=== PATIENT | male | born 1975 | race Caucasian/White ===

== ENCOUNTER 2017-10-21 19:51 | Inpatient (IN) | payer OTHER ==
[2017-10-21] MEDS ORDERED: Sodium Chloride 0.9% 1,000 ML IV STA ×2 (20:24→22:20)
[2017-10-21] MEDS ORDERED: Famotidine 20mg/50ml Premix IVPB STA (20:24)
[2017-10-21] MEDS ORDERED: Famotidine 20mg/50ml 20 MG/50 ML BAG IVPB ONE (20:35)
--- NOTE | 2017-10-21 20:37 | ED PDOC ---
HPI: Abdomen Chief Complaint (Nursing): Abdominal Pain History Per: Patient History/Exam Limitations: no limitations Additional Complaint(s): 42 yo M with no PMH presents c/o constant waxing and waning epigastric pain which radiates to the rest of the abdomen, associated with nausea, vomiting, reports his symptoms started 2-3 hours after eating left over food, he had 2 BMs without improvement of his symptoms. Reports no fever, chills, urinary symptoms, diarrhea, CP, SOB, back pain, GB disease, h/o kidney stones, similar symptoms in the past, abdominal surgeries, melena, hematochezia. PMD none Past Medical History Vital Signs: Last Vital Signs Temp 98.7 F 10/22/17 02:05 Pulse 64 10/22/17 02:05 Resp 18 10/22/17 02:17 BP 113/65 10/22/17 02:05 Pulse Ox 100 10/22/17 02:46 - Medical History PMH: No Chronic Diseases - Family History Family History: States: No Known Family Hx - Social History Current smoker - smoking cessation education provided: Yes (on occasions when he drinks alcohol) Alcohol: Social - Home Medications Home Medications: Ambulatory Orders Medication Instructions Recorded No Known Home Med 10/22/17 - Allergies Allergies/Adverse Reactions: Allergies Allergy/AdvReac Type Severity Reaction Status Date / Time No Known Allergies Allergy Verified 10/21/17 19:58 Review of Systems Constitutional: Negative for: Fever, Malaise Cardiovascular: Negative for: Chest Pain, Palpitations Respiratory: Negative for: Cough, Shortness of Breath Gastrointestinal: Positive for: Nausea, Vomiting, Abdominal Pain. Negative for : Diarrhea Genitourinary Male: Negative for: Dysuria, Frequency Musculoskeletal: Negative for: Back Pain Skin: Negative for: Rash, Lesions Neurological: Negative for: Weakness, Numbness Physical Exam - Physical Exam Appears: Positive for: Well, Non-toxic, In Acute Distress (moderate painful distress, unable to lay comfortably in the bed) Head Exam: Positive for: ATRAUMATIC, NORMAL INSPECTION, NORMOCEPHALIC Skin: Positive for: Normal Color, Warm, DRY Eye Exam: Positive for: EOMI, Normal appearance, PERRL ENT: Positive for: Normal ENT Inspection, Other (mucus membranes moist) Neck: Positive for: Normal, Painless ROM Cardiovascular/Chest: Positive for: Regular Rate, Rhythm. Negative for: Murmur Respiratory: Positive for: Normal Breath Sounds. Negative for: Rales, Rhonchi, Wheezing Gastrointestinal/Abdominal: Positive for: Normal Exam, Soft, Tenderness ( moderate diffuse abdominal tenderness, greatest in the LUQ). Negative for: Organomegaly, Mass, Distended, Guarding, Rebound Back: Positive for: Normal Inspection. Negative for: L CVA Tenderness, R CVA Tenderness, Vertebral Tenderness Extremity: Positive for: Normal ROM, Capillary Refill (<2sec). Negative for: Tenderness, Deformity, Swelling Neurologic/Psych: Positive for: Alert, software engineer intern II-XII, Oriented (x3). Negative for : Motor/Sensory Deficits - Laboratory Results Result Diagrams: 10/21/17 20:45 10/21/17 20:45 - ECG O2 Sat by Pulse Oximetry: 100 Medical Decision Making Medical Decision Making: Impression : consider gastroenteritis, dyspepsia, biliary colic Plan : - Labs - IV - UA - US abd / renal - Toradol IV / pepcid IV / zofran IV Labs reviewed : wbc 15, cmp/LFTs wnl. Time: 1 US ABD RESULTS FINDINGS: Liver: Unremarkable liver span 14.5 cm No mass. No intrahepatic bile duct dilation. Gallbladder: Abnormal wall thickening 6 mm No gallstones. Common bile duct: Unremarkable as visualized. No stones. 3.9 mm Pancreas: Unremarkable as visualized. Kidneys: Unremarkable. No stones. No solid mass. No hydronephrosis. RIGHT kidney 10.4 cm x 4.7 cm x 5.4 cm. LEFT kidney 9.8 cm x 5.7 cm x 5 cm Spleen: Unremarkable. No splenomegaly. 8.2 cm IMPRESSION: 1. Hepatic steatosis 2. Abnormal gallbladder wall thickening no gallstones 3. Otherwise Normal abdominal ultrasound. Dictated and Authenticated by: Edwin Archer MD 10/22/2017 12:02 AM Eastern Time ([place] & [place]) On re-evaluation, patient reports improvement of symptoms, continues to c/o mild pain to the epigastric area. On exam, patient remains AAOx3, in no acute distress. Abdomen soft, mild tenderness to the epigastric area, repeat neuro exam shows no focal findings. Lab results reviewed d/w the patient. Diagnostic results d/w the patient in great detail. Diagnosis of possible acalculous cholecystitis d/w the patient. Zosyn IV ordered. Based on history, exam and diagnostic results, plan will be for inpatient observation. Case d/w cardiovascular surgical tech Dr. Clinton, agrees with plan. Patient states he fully agrees with further plan and disposition. I have given the patient opportunity to ask any additional questions. Consult for surgery ordered. Case d/w medicine relationship management lead physician, Dr. Mcdowell, agrees with plan. Scribe Attestation: Documented by Yadiel Bustamante, acting as a scribe for Caroline Parks PA-C. Provider Scribe Attestation: All medical record entries made by the Scribe were at my direction and personally dictated by me. I have reviewed the chart and agree that the record accurately reflects my personal performance of the medical decision making for this patient. I have also personally directed, reviewed, and agree with the discharge instructions and disposition. Disposition - Clinical Impression Clinical Impression: Abdominal pain, Cholecystitis - Patient ED Disposition Is Patient to be Admitted: Yes Counseled Patient/Family Regarding: Studies Performed, Diagnosis - Disposition Disposition Time: 00:00 Condition: STABLE
[2017-10-21 21:00] LABS: MEAN PLATELET VOLUME 7.8 fl (7.2-11.7); MONO # 0.5 K/uL (0.0-0.8); SQUAMOUS EPITHIAL < 1 /hpf (0-5); URINE BILIRUBIN NEGATIVE (NEGATIVE); URINE BLOOD SMALL (NEGATIVE); URINE CLARITY CLEAR (Clear); URINE COLOR YELLOW (YELLOW); URINE GLUCOSE (UA) NEG (Normal); URINE LEUKOCYTE ESTERASE NEG Leu/uL (Negative); URINE PROTEIN NEGATIVE (NEGATIVE); URINE UROBILINOGEN 0.2-1.0 mg/dL (0.2-1.0)
[2017-10-21 21:06] LABS: ALB/GLOB RATIO 1.4 (1.0-2.1); ALBUMIN 4.6 g/dL (3.5-5.0); ALT/SGPT 50 U/L (21-72); AST/SGOT 36 U/L (17-59); BLOOD UREA NITROGEN 9 mg/dl (9-20); CALCIUM 9.3 mg/dL (8.4-10.2); GFR AFRICAN-AMERICAN > 60; GFR NON-AFRICAN AMERICAN > 60; LIPASE 65 U/L (23-300)
[2017-10-21 21:10] LABS: BASO % 0.1 % (0.0-2.0); EOS % 0.1 % (0.0-4.0); HEMOGLOBIN 14.3 g/dL (12.0-18.0); LYMPH # 0.8 K/uL (1.0-4.3); LYMPH % 5.4 % (20.0-40.0); MEAN CELL VOLUME 88.7 fl (80.0-94.0); MEAN CORPUSCULAR HEMOGLOBIN 30.7 pg (27.0-31.0); MEAN CORPUSCULAR HGB CONC 34.6 g/dL (33.0-37.0); MONO % 3.6 % (0.0-10.0); NEUT # 13.7 K/uL (1.8-7.0); NEUT % 90.8 % (50.0-75.0); NRBC % 0.1 % (0.0-0.0); PLATELET COUNT 219 K/uL (130-400); RBC 4.65 Mil/uL (4.40-5.90); RED CELL DISTRIBUTION WIDTH 12.6 % (11.5-14.5); WHITE BLOOD COUNT 15.1 K/uL (4.8-10.8)
[2017-10-21 21:47] LABS: BANDS 1 % (0-2); LYMPHOCYTE 6 % (20-50); MONOCYTE 2 % (0-10); NEUTROPHIL 91 % (42-75); PLATELET ESTIMATE NORMAL (NORMAL); TOTAL CELLS COUNTED 100
[2017-10-21] MEDS ORDERED: Atrop/Hyos/Scop/PhenoB Elixir PO ONE (23:49)
[2017-10-21] MEDS ORDERED: Alum-Mag Hydrox-Simethicone Susp (30 mL) PO STA (23:49)
[2017-10-21] MEDS ORDERED: Alum-Mag Hydrox-Simethicone Susp (30 mL) ONE (23:54)
[2017-10-22] MEDS ORDERED: Piperacillin/Tazobact 3.375 GM in Sodium Chloride 0.9% 100 ML IVPB STA (00:30)
[2017-10-22] MEDS ORDERED: Piperacillin/Tazobact 3.375 gm Inj IVPB ONE (00:50)
--- NOTE | 2017-10-22 00:54 | CP.PCM.CON ---
<Song Jacob - Last Filed: 10/22/17 06:43> History of Present Illness - History of Present Illness History of Present Illness: Surgery Consult note. Dr. Coleman 42yo M with no significant PMHx here for evaluation of abdominal pain. Patient states that the abdominal pain started at about 6PM last night, located in the epigastric region and radiates throughout the entire abdomen, described as sharp , crampy, constant and severe. No remitting or exacerbating factors. Last food intake was at 2PM, left-over food. Does report nausea and vomiting x2 episodes, non-bilious, non bloody. Reports multiple bowel movements (3-4) today , harder consistency compared to normal, denies any blood or melena. Does report some chills, no fevers. Has never had similar symptoms in the past. No CP /SOB. No urinary complaints. No headaches. No other sick contacts. PMHx: Denies PSHx: Inguinal hernia repair (unknown laterality). Social Hx: Occasional Tobacco use (1cig per week), Social ETOH use (3 times per week), Denies illicit drugs Family Hx: denies NKDA Review of Systems - Review of Systems All systems: reviewed and no additional remarkable complaints except - Constitutional Constitutional: Chills. absent: Fever - Cardiovascular Cardiovascular: absent: Chest Pain, Dyspnea - Respiratory Respiratory: absent: Cough, Dyspnea - Gastrointestinal Gastrointestinal: Abdominal Pain, Constipation, Nausea, Vomiting. absent: Coffee Ground Emesis, Hematochezia, Loose Stools, Melena - Genitourinary Genitourinary: absent: Difficulty Urinating, Dysuria - Musculoskeletal Musculoskeletal: absent: Back Pain Past Patient History - Past Medical History & Family History Past Medical History?: No Past Family History: Reviewed and not pertinent - Past Social History Smoking Status: Current Some Days Smoker Alcohol: Social Drugs: Denies - PSYCHIATRIC Hx Substance Use: No - SURGICAL HISTORY Hx Surgeries: No Meds Allergies/Adverse Reactions: Allergies Allergy/AdvReac Type Severity Reaction Status Date / Time No Known Allergies Allergy Verified 10/21/17 19:58 - Medications Medications: Current Medications Sodium Chloride (Sodium Chloride 0.9%) 1,000 mls @ 200 mls/hr IV .Q5H STA Stop: 10/22/17 03:19 Last Admin: 10/21/17 22:56 Dose: 200 mls/hr Piperacillin Sod/Tazobactam (Sod 3.375 gm/ Sodium Chloride) 100 mls @ 100 mls/ hr IVPB STAT STA PRN Reason: Protocol Stop: 10/22/17 01:29 Physical Exam - Constitutional Appears: Well, Non-toxic, No Acute Distress - Head Exam Head Exam: ATRAUMATIC, NORMAL INSPECTION, NORMOCEPHALIC - Eye Exam Eye Exam: EOMI, Normal appearance. absent: Scleral icterus - ENT Exam ENT Exam: Mucous Membranes Moist - Respiratory Exam Respiratory Exam: NORMAL BREATHING PATTERN. absent: Accessory Muscle Use, Respiratory Distress - Cardiovascular Exam Cardiovascular Exam: RRR. absent: JVD - GI/Abdominal Exam GI & Abdominal Exam: Soft. absent: Distended, Firm, Guarding, Hernia, Rigid Additional comments: Mild epigastric tenderness. Soft, non-distended. No rebound, no guarding. No rebound tenderness. Negative Mathew's sign - Extremities Exam Extremities exam: Positive for: normal inspection. Negative for: calf tenderness - Back Exam Back exam: NORMAL INSPECTION. absent: CVA tenderness (L), CVA tenderness (R) - Neurological Exam Neurological exam: Alert, Oriented x3 - Psychiatric Exam Psychiatric exam: Normal Affect, Normal Mood - Skin Skin Exam: Dry, Intact, Normal Color, Warm Results - Vital Signs Recent Vital Signs: Last Vital Signs Temp 98.4 F 10/21/17 19:58 Pulse 77 10/21/17 19:58 Resp 20 10/21/17 19:58 BP 148/95 H 10/21/17 19:58 Pulse Ox 100 10/22/17 00:18 - Labs Result Diagrams: 10/21/17 20:45 10/21/17 20:45 Labs: Laboratory Results - last 24 hr 10/21/17 10/21/17 10/21/17 20:45 20:45 20:45 WBC 15.1 H RBC 4.65 Hgb 14.3 Hct 41.2 MCV 88.7 MCH 30.7 MCHC 34.6 RDW 12.6 Plt Count 219 MPV 7.8 Neut % (Auto) 90.8 H Lymph % (Auto) 5.4 L [place] % (Auto) 3.6 Eos % (Auto) 0.1 Baso % (Auto) 0.1 Neut # (Auto) 13.7 H Lymph # (Auto) 0.8 L [place] # (Auto) 0.5 Eos # (Auto) 0.0 Baso # (Auto) 0.0 Neutrophils % (Manual) 91 H Band Neutrophils % 1 Lymphocytes % (Manual) 6 L Monocytes % (Manual) 2 Platelet Estimate Normal Sodium 137 Potassium 3.6 Chloride 98 Carbon Dioxide 27 Anion Gap 16 BUN 9 Creatinine 0.7 L Est GFR ( Amer) > 60 Est GFR (Non-Af Amer) > 60 Random Glucose 110 Calcium 9.3 Total Bilirubin 1.0 AST 36 ALT 50 Alkaline Phosphatase 63 Total Protein 7.8 Albumin 4.6 Globulin 3.3 Albumin/Globulin Ratio 1.4 Lipase 65 Urine Color Yellow Urine Clarity Clear Urine pH 6.0 Ur Specific [place] 1.015 Urine Protein Negative Urine Glucose (UA) Neg Urine Ketones Trace Urine Blood Small Urine Nitrate Negative Urine Bilirubin Negative Urine Urobilinogen 0.2-1.0 Ur Leukocyte Esterase Neg Urine RBC (Auto) 8 H Urine Microscopic WBC < 1 Ur Squamous Epith Cells < 1 Assessment & Plan - Assessment and Plan (Free Text) Assessment: 42yo M with Abdominal pain - Abd US noted: No gallstones; GB wall thickening 6mm. No CBD stones. CBD 3.9mm - Leukocytosis. Afebrile. VSS Plan: - Admit to medicine - NPO for now - IVF - IV Abx - antiemetics prn - pain management - f/u AM labs - F/u HIDA - We will follow patient's clinical status and make recommendations as warranted Further recs as per Dr. Jared Jacob PGY1 surgery pager: [phone] <Jd Coleman - Last Filed: 10/22/17 18:17> History of Present Illness - History of Present Illness History of Present Illness: Patient was seen and examined at the bedside. Agree with resident's note above. Meds - Medications Medications: Current Medications Acetaminophen (Tylenol 325mg Tab) 650 mg PO Q4 PRN PRN Reason: Fever >100.4 F Last Admin: 10/22/17 09:31 Dose: 650 mg Docusate Sodium (Colace) 100 mg PO BID SOFI Last Admin: 10/22/17 17:06 Dose: 100 mg Hydromorphone HCl (Dilaudid) 0.5 mg IVP Q4H PRN PRN Reason: Pain, moderate (4-7) Piperacillin Sod/Tazobactam (Sod 3.375 gm/ Sodium Chloride) 100 mls @ 100 mls/ hr IVPB 0000,0600,1200,1800 [facility] PRN Reason: Protocol Last Admin: 10/22/17 17:05 Dose: 100 mls/hr Dextrose/Sodium Chloride (Dextrose 5%/0.45% Ns 1000 Ml) 1,000 mls @ 125 mls/hr IV .Q8H [facility] Stop: 10/23/17 09:34 Last Admin: 10/22/17 17:23 Dose: 125 mls/hr Ondansetron HCl (Zofran Inj) 4 mg IVP Q6 PRN PRN Reason: Nausea/Vomiting Pantoprazole Sodium (Protonix Inj) 40 mg IVP DAILY [facility] Last Admin: 10/22/17 10:08 Dose: 40 mg Physical Exam - GI/Abdominal Exam Additional comments: soft, tender in the RLQ, ND, BS+, no rebound, no guarding Results - Vital Signs Recent Vital Signs: Last Vital Signs Temp 98.3 F 10/22/17 16:31 Pulse 101 H 10/22/17 16:31 Resp 20 10/22/17 16:31 BP 108/70 10/22/17 16:31 Pulse Ox 100 10/22/17 16:31 - Labs Result Diagrams: 10/22/17 05:30 10/22/17 05:30 Labs: Laboratory Results - last 24 hr 10/21/17 10/21/17 10/21/17 20:45 20:45 20:45 WBC 15.1 H RBC 4.65 Hgb 14.3 Hct 41.2 MCV 88.7 MCH 30.7 MCHC 34.6 RDW 12.6 Plt Count 219 MPV 7.8 Neut % (Auto) 90.8 H Lymph % (Auto) 5.4 L [place] % (Auto) 3.6 Eos % (Auto) 0.1 Baso % (Auto) 0.1 Neut # (Auto) 13.7 H Lymph # (Auto) 0.8 L [place] # (Auto) 0.5 Eos # (Auto) 0.0 Baso # (Auto) 0.0 Neutrophils % (Manual) 91 H Band Neutrophils % 1 Lymphocytes % (Manual) 6 L Monocytes % (Manual) 2 Platelet Estimate Normal Sodium 137 Potassium 3.6 Chloride 98 Carbon Dioxide 27 Anion Gap 16 BUN 9 Creatinine 0.7 L Est GFR ( Amer) > 60 Est GFR (Non-Af Amer) > 60 Random Glucose 110 Calcium 9.3 Total Bilirubin 1.0 AST 36 ALT 50 Alkaline Phosphatase 63 Total Protein 7.8 Albumin 4.6 Globulin 3.3 Albumin/Globulin Ratio 1.4 Lipase 65 Urine Color Yellow Urine Clarity Clear Urine pH 6.0 Ur Specific [place] 1.015 Urine Protein Negative Urine Glucose (UA) Neg Urine Ketones Trace Urine Blood Small Urine Nitrate Negative Urine Bilirubin Negative Urine Urobilinogen 0.2-1.0 Ur Leukocyte Esterase Neg Urine RBC (Auto) 8 H Urine Microscopic WBC < 1 Ur Squamous Epith Cells < 1 10/22/17 10/22/17 05:30 05:30 WBC 13.2 H RBC 4.51 Hgb 13.9 Hct 39.9 MCV 88.4 MCH 30.9 MCHC 35.0 RDW 13.0 Plt Count 197 MPV 8.0 Neut % (Auto) 81.0 H Lymph % (Auto) 11.2 L [place] % (Auto) 7.3 Eos % (Auto) 0.3 Baso % (Auto) 0.2 Neut # (Auto) 10.7 H Lymph # (Auto) 1.5 [place] # (Auto) 1.0 H Eos # (Auto) 0.0 Baso # (Auto) 0.0 Neutrophils % (Manual) Band Neutrophils % Lymphocytes % (Manual) Monocytes % (Manual) Platelet Estimate Sodium 140 Potassium 3.6 Chloride 104 Carbon Dioxide 28 Anion Gap 12 BUN 4 L Creatinine 0.8 Est GFR ( Amer) > 60 Est GFR (Non-Af Amer) > 60 Random Glucose 98 Calcium 8.4 Total Bilirubin 1.5 H AST 27 ALT 34 Alkaline Phosphatase 49 Total Protein 6.6 Albumin 3.8 Globulin 2.9 Albumin/Globulin Ratio 1.3 Lipase Urine Color Urine Clarity Urine pH Ur Specific [place] Urine Protein Urine Glucose (UA) Urine Ketones Urine Blood Urine Nitrate Urine Bilirubin Urine Urobilinogen Ur Leukocyte Esterase Urine RBC (Auto) Urine Microscopic WBC Ur Squamous Epith Cells - Imaging and Cardiology US - abdomen Status: Image reviewed by me, Report reviewed by me Assessment & Plan - Assessment and Plan (Free Text) Plan: - Keep NPO - IV fluids - Continue Zosyn - CT scan abd/pelvis with po and IV contrast - Pain control - Repeat labs in am - Will follow
[2017-10-22] MEDS ORDERED: HYDROmorphone 0.5 mg/0.5 ml ISec IVP PRN (00:56)
[2017-10-22] MEDS ORDERED: Sodium Chloride 0.9% 1,000 ML IV SCH (01:00)
[2017-10-22] MEDS: Piperacillin/Tazobact 3.375 GM in Sodium Chloride 0.9% 100 ML IVPB SCH ×4 (05:41→23:27)
[2017-10-22 07:27] LABS: BASO % 0.2 % (0.0-2.0); EOS % 0.3 % (0.0-4.0); HEMOGLOBIN 13.9 g/dL (12.0-18.0); LYMPH # 1.5 K/uL (1.0-4.3); LYMPH % 11.2 % (20.0-40.0); MEAN CELL VOLUME 88.4 fl (80.0-94.0); MEAN CORPUSCULAR HEMOGLOBIN 30.9 pg (27.0-31.0); MONO % 7.3 % (0.0-10.0); NEUT # 10.7 K/uL (1.8-7.0); RBC 4.51 Mil/uL (4.40-5.90); WHITE BLOOD COUNT 13.2 K/uL (4.8-10.8)
[2017-10-22 07:29] LABS: ALB/GLOB RATIO 1.3 (1.0-2.1); ALBUMIN 3.8 g/dL (3.5-5.0); ALT/SGPT 34 U/L (21-72); AST/SGOT 27 U/L (17-59); BLOOD UREA NITROGEN 4 mg/dl (9-20); CALCIUM 8.4 mg/dL (8.4-10.2); GFR AFRICAN-AMERICAN > 60; GFR NON-AFRICAN AMERICAN > 60
--- NOTE | 2017-10-22 09:59 | RAD ---
PROCEDURE: CHEST RADIOGRAPH, 1 VIEW HISTORY: fever COMPARISON: None available. FINDINGS: LUNGS: Clear. PLEURA: No pneumothorax or pleural fluid seen. CARDIOVASCULAR: Normal. OSSEOUS STRUCTURES: No significant abnormalities. VISUALIZED UPPER ABDOMEN: Normal. OTHER FINDINGS: None. IMPRESSION: No acute cardiopulmonary disease appreciated.
[2017-10-22] MEDS: Dextrose 5%/0.45% NS 1,000 ML IV SCH ×2 (10:04→17:23)
--- NOTE | 2017-10-22 12:47 | CP.PCM.CON ---
History of Present Illness - History of Present Illness History of Present Illness: 42 yo male admitted with abdominal pain. . Started Monday afternoon after eating leftovers from the day before. Food was vegetarian [place] food.Also had multiple BMs which varied from soft to hard. No prior GI issues. This morning had temp spike to 103. Review of Systems - Constitutional Constitutional: Chills - EENT Eyes: absent: Blurred Vision Ears: absent: Decreased Hearing Nose/Mouth/Throat: absent: Nasal Congestion - Cardiovascular Cardiovascular: absent: Chest Pain - Respiratory Respiratory: absent: Dyspnea - Gastrointestinal Gastrointestinal: Abdominal Pain - Genitourinary Genitourinary: absent: Change in Urinary Stream Past Patient History - Past Medical History & Family History Past Medical History?: No Past Family History: Reviewed and not pertinent - Past Social History Smoking Status: Current Some Days Smoker Alcohol: Social Drugs: Denies - CARDIAC Hx Cardiac Disorders: No - PULMONARY Hx Respiratory Disorders: No - NEUROLOGICAL Hx Neurological Disorder: No - HEENT Hx HEENT Problems: No - RENAL Hx Chronic Kidney Disease: No - ENDOCRINE/METABOLIC Hx Endocrine Disorders: No - HEMATOLOGICAL/ONCOLOGICAL Hx Blood Disorders: No Hx AIDS: No Hx Human Immunodeficiency Virus (HIV): No - INTEGUMENTARY Hx Dermatological Problems: No - MUSCULOSKELETAL/RHEUMATOLOGICAL Hx Musculoskeletal Disorders: No Hx Falls: No - GASTROINTESTINAL Hx Gastrointestinal Disorders: No - GENITOURINARY/GYNECOLOGICAL Hx Genitourinary Disorders: No - PSYCHIATRIC Hx Substance Use: No - SURGICAL HISTORY Hx Surgeries: No - ANESTHESIA Hx Anesthesia: No Hx Anesthesia Reactions: No Hx Malignant Hyperthermia: No Has any member of the family had a problem w/ anesthesia?: No Meds Allergies/Adverse Reactions: Allergies Allergy/AdvReac Type Severity Reaction Status Date / Time No Known Allergies Allergy Verified 10/21/17 19:58 - Medications Medications: Current Medications Acetaminophen (Tylenol 325mg Tab) 650 mg PO Q4 PRN PRN Reason: Fever >100.4 F Last Admin: 10/22/17 09:31 Dose: 650 mg Docusate Sodium (Colace) 100 mg PO BID SOFI Hydromorphone HCl (Dilaudid) 0.5 mg IVP Q4H PRN PRN Reason: Pain, moderate (4-7) Piperacillin Sod/Tazobactam (Sod 3.375 gm/ Sodium Chloride) 100 mls @ 100 mls/ hr IVPB 0000,0600,1200,1800 [facility] PRN Reason: Protocol Last Admin: 10/22/17 11:02 Dose: 100 mls/hr Dextrose/Sodium Chloride (Dextrose 5%/0.45% Ns 1000 Ml) 1,000 mls @ 125 mls/hr IV .Q8H [facility] Stop: 10/23/17 09:34 Last Admin: 10/22/17 10:04 Dose: 125 mls/hr Ondansetron HCl (Zofran Inj) 4 mg IVP Q6 PRN PRN Reason: Nausea/Vomiting Pantoprazole Sodium (Protonix Inj) 40 mg IVP DAILY [facility] Last Admin: 10/22/17 10:08 Dose: 40 mg Physical Exam - Constitutional Appears: No Acute Distress - Head Exam Head Exam: ATRAUMATIC - Eye Exam Eye Exam: Normal appearance - ENT Exam ENT Exam: Normal Exam - Respiratory Exam Respiratory Exam: NORMAL BREATHING PATTERN - Cardiovascular Exam Cardiovascular Exam: REGULAR RHYTHM, +S1, +S2 - GI/Abdominal Exam GI & Abdominal Exam: Normal Bowel Sounds, Soft, Tenderness Additional comments: Moderate LUQ and RLQ tenderness Results - Vital Signs Recent Vital Signs: Last Vital Signs Temp 99.1 F 10/22/17 11:00 Pulse 62 10/22/17 08:05 Resp 18 10/22/17 08:05 BP 132/85 10/22/17 08:05 Pulse Ox 100 10/22/17 08:05 - Labs Result Diagrams: 10/22/17 05:30 10/22/17 05:30 Labs: Laboratory Results - last 24 hr 10/21/17 10/21/17 10/21/17 20:45 20:45 20:45 WBC 15.1 H RBC 4.65 Hgb 14.3 Hct 41.2 MCV 88.7 MCH 30.7 MCHC 34.6 RDW 12.6 Plt Count 219 MPV 7.8 Neut % (Auto) 90.8 H Lymph % (Auto) 5.4 L [place] % (Auto) 3.6 Eos % (Auto) 0.1 Baso % (Auto) 0.1 Neut # (Auto) 13.7 H Lymph # (Auto) 0.8 L [place] # (Auto) 0.5 Eos # (Auto) 0.0 Baso # (Auto) 0.0 Neutrophils % (Manual) 91 H Band Neutrophils % 1 Lymphocytes % (Manual) 6 L Monocytes % (Manual) 2 Platelet Estimate Normal Sodium 137 Potassium 3.6 Chloride 98 Carbon Dioxide 27 Anion Gap 16 BUN 9 Creatinine 0.7 L Est GFR ( Amer) > 60 Est GFR (Non-Af Amer) > 60 Random Glucose 110 Calcium 9.3 Total Bilirubin 1.0 AST 36 ALT 50 Alkaline Phosphatase 63 Total Protein 7.8 Albumin 4.6 Globulin 3.3 Albumin/Globulin Ratio 1.4 Lipase 65 Urine Color Yellow Urine Clarity Clear Urine pH 6.0 Ur Specific [place] 1.015 Urine Protein Negative Urine Glucose (UA) Neg Urine Ketones Trace Urine Blood Small Urine Nitrate Negative Urine Bilirubin Negative Urine Urobilinogen 0.2-1.0 Ur Leukocyte Esterase Neg Urine RBC (Auto) 8 H Urine Microscopic WBC < 1 Ur Squamous Epith Cells < 1 10/22/17 10/22/17 05:30 05:30 WBC 13.2 H RBC 4.51 Hgb 13.9 Hct 39.9 MCV 88.4 MCH 30.9 MCHC 35.0 RDW 13.0 Plt Count 197 MPV 8.0 Neut % (Auto) 81.0 H Lymph % (Auto) 11.2 L [place] % (Auto) 7.3 Eos % (Auto) 0.3 Baso % (Auto) 0.2 Neut # (Auto) 10.7 H Lymph # (Auto) 1.5 [place] # (Auto) 1.0 H Eos # (Auto) 0.0 Baso # (Auto) 0.0 Neutrophils % (Manual) Band Neutrophils % Lymphocytes % (Manual) Monocytes % (Manual) Platelet Estimate Sodium 140 Potassium 3.6 Chloride 104 Carbon Dioxide 28 Anion Gap 12 BUN 4 L Creatinine 0.8 Est GFR ( Amer) > 60 Est GFR (Non-Af Amer) > 60 Random Glucose 98 Calcium 8.4 Total Bilirubin 1.5 H AST 27 ALT 34 Alkaline Phosphatase 49 Total Protein 6.6 Albumin 3.8 Globulin 2.9 Albumin/Globulin Ratio 1.3 Lipase Urine Color Urine Clarity Urine pH Ur Specific [place] Urine Protein Urine Glucose (UA) Urine Ketones Urine Blood Urine Nitrate Urine Bilirubin Urine Urobilinogen Ur Leukocyte Esterase Urine RBC (Auto) Urine Microscopic WBC Ur Squamous Epith Cells Assessment & Plan (1) Abdominal pain Assessment and Plan: Likely gastroenteritis. Continue IV Zosyn and advance diet as tolerated. Status: Acute
--- NOTE | 2017-10-22 15:22 | US ---
HISTORY: epigastric pain, r/o hydronephrosis, upper abd pain COMPARISON: None. TECHNIQUE: Sonographic evaluation of the abdomen. FINDINGS: LIVER: Measures 14.5 cm. Normal echogenicity of the liver parenchyma. No mass. No intrahepatic bile duct dilatation. GALLBLADDER: Gallbladder is not fully distended with mural thickening up to a approximately 3.4 mm without pericholecystic fluid collection associated. No cholelithiasis either. Finally there is no reported sonographic Mathew's sign. Clinically correlate for potential cholecystitis nevertheless. COMMON BILE DUCT: Measures 4.0 mm. No stones. No dilatation. PANCREAS: Pancreas is obscured by overlying bowel gas significantly. RIGHT KIDNEY: Measures 10.5cm. Normal echogenicity. No calculus, mass, or hydronephrosis. LEFT KIDNEY: Measures 9.8cm. Normal echogenicity. No calculus, mass, or hydronephrosis. SPLEEN: Normal in size and contour, measuring 8.2 cm. No mass. AORTA: No aneurysmal dilatation. IVC: Unremarkable. OTHER FINDINGS: None. IMPRESSION: Pancreas is not identified due to extensive overlying bowel gas with remainder the examination marker only 4 mild gallbladder mural thickening without pericholecystic fluid collection or sonographic Mathew's sign. No cholelithiasis. Normal CBD caliber. No intrahepatic biliary dilatation. Clinically correlate for potential cholecystitis nevertheless.
[2017-10-22] MEDS ORDERED: Iohexol 240 (50 ml) PO ONE (18:21)
--- NOTE | 2017-10-22 20:18 | HP ---
HISTORY OF PRESENT ILLNESS: Mr. Lu is a 42-year-old male who was admitting via the emergency room because of sudden onset of abdominal pain on the night prior to admission. Pain was midepigastric, radiating to the right upper quadrant and then became diffuse. He indicated that he had eaten some [place]ican food on the way that his pain started. He showed up in the emergency room where he had an ultrasound of the abdomen done which was compatible with cholecystitis. He therefore admitted for workup and therapy. PAST MEDICAL HISTORY: He has an unremarkable past medical history except for inguinal hernia repair. FAMILY HISTORY: Noncontributory. SOCIAL HISTORY: He smokes cigarettes occasionally. Occasionally drinks alcohol socially. He does not use drugs and is employed as a financial services consultant. PHYSICAL EXAMINATION: GENERAL: The patient is awake, alert, and oriented with some discomfort because of fever. VITAL SIGNS: Temperature higher than 101 degrees Fahrenheit. Remarkable for blood pressure of 148/95 with a pulse of 77, respiratory rate 20, O2 sat 100% on room air. SKIN: Shows fair turgor, but appears very warm and clammy. HEENT: Pupils are equal and reactive to light and accommodation with pale conjunctivae. Mouth shows fair hygiene. JVP flat. LUNGS: Clear. HEART: Regular. No murmurs or gallop. ABDOMEN: Soft with diffuse abdominal tenderness, more on the right upper quadrant and midepigastric area. There is normoactive bowel sounds. There is no organomegaly appreciated. GENITALIA: Deferred. RECTAL: Deferred. EXTREMITIES: Show no edema or cyanosis. CENTRAL NERVOUS SYSTEM: Grossly intact. LABORATORY DATA: WBC 15.1, hemoglobin 14.3, platelet count 19,000. Sodium 137, potassium 3.6, BUN 9, creatinine 0.7, serum glucose 110. Ultrasound of abdomen, gallbladder thickening, no stones in the common bile duct. IMPRESSION: Acute abdominal pain r/o gallbladder disease, leukocytosis with fever, one has to rule out septicemia. The plan is intravenous hydration, intravenous antibiotic therapy and analgesics for pain. Surgical and gastroenterology evaluation. The patient wants to go home today air, but is advised against that until temperature and abdominal pain resolves and surgical and gastroenterology evaluation completes their workup. He is willing to stay and get therapy. Kenny Mcdowell MD [facility] # [id number]
[2017-10-22] MEDS ORDERED: Sodium Chloride 0.9% 50 ML IV ONE (20:37)
[2017-10-22] MEDS ORDERED: Iohexol 300 100 ML IJ ONE (20:37)
[2017-10-23] MEDS: Dextrose 5%/0.45% NS 1,000 ML IV SCH (05:21)
[2017-10-23] MEDS: Piperacillin/Tazobact 3.375 GM in Sodium Chloride 0.9% 100 ML IVPB SCH ×4 (05:21→23:23)
[2017-10-23 06:16] LABS: ALB/GLOB RATIO 1.1 (1.0-2.1); ALBUMIN 3.5 g/dL (3.5-5.0); ALT/SGPT 36 U/L (21-72); AST/SGOT 26 U/L (17-59); BLOOD UREA NITROGEN 5 mg/dl (9-20); CALCIUM 8.7 mg/dL (8.4-10.2); GFR AFRICAN-AMERICAN > 60; GFR NON-AFRICAN AMERICAN > 60
[2017-10-23 06:17] LABS: BASO % 0.2 % (0.0-2.0); EOS # 0.1 K/uL (0.0-0.7); EOS % 1.5 % (0.0-4.0); HEMOGLOBIN 13.6 g/dL (12.0-18.0); LYMPH # 1.1 K/uL (1.0-4.3); LYMPH % 11.1 % (20.0-40.0); MEAN CELL VOLUME 88.8 fl (80.0-94.0); MEAN CORPUSCULAR HEMOGLOBIN 30.8 pg (27.0-31.0); MEAN CORPUSCULAR HGB CONC 34.7 g/dL (33.0-37.0); MEAN PLATELET VOLUME 7.7 fl (7.2-11.7); MONO # 0.6 K/uL (0.0-0.8); MONO % 5.8 % (0.0-10.0); NEUT % 81.4 % (50.0-75.0); RBC 4.4 Mil/uL (4.40-5.90); WHITE BLOOD COUNT 9.9 K/uL (4.8-10.8)
[2017-10-23 06:19] LABS: INR 1.5 (0.9-1.2); PARTIAL THROMBOPLASTIN TIME 30.4 Seconds (25.6-37.1); PROTHROMBIN TIME 16.3 Seconds (9.8-13.1)
[2017-10-23] MEDS: Potassium Chloride 20 mEq 100 ML IVPB SCH ×2 (08:00→13:03)
--- NOTE | 2017-10-23 08:39 | CP.PCM.PN ---
Subjective - Date & Time of Evaluation Date of Evaluation: 10/23/17 Time of Evaluation: 08:41 - Subjective Subjective: APPREHENSIVE THIS AM BECAUSE SURGERY WAS NOT DONE YESTERDAY WORRIED ABOUT RUPTURE OF HIS APPENDIX IF SURGERY IS NOT DONE SOON LESS ABDOMINAL PAIN AND FEVER Objective - Vital Signs/Intake and Output Vital Signs (last 24 hours): Temp Pulse Resp BP Pulse Ox 98.1 F 72 18 118/73 98 10/23/17 08:16 10/23/17 08:16 10/23/17 08:16 10/23/17 08:16 10/23/17 08:16 - Medications Medications: Current Medications Acetaminophen (Tylenol 325mg Tab) 650 mg PO Q4 PRN PRN Reason: Fever >100.4 F Last Admin: 10/22/17 09:31 Dose: 650 mg Docusate Sodium (Colace) 100 mg PO BID [facility] Last Admin: 10/23/17 08:01 Dose: Not Given Hydromorphone HCl (Dilaudid) 0.5 mg IVP Q4H PRN PRN Reason: Pain, moderate (4-7) Piperacillin Sod/Tazobactam (Sod 3.375 gm/ Sodium Chloride) 100 mls @ 100 mls/ hr IVPB 0000,0600,1200,1800 SOFI PRN Reason: Protocol Last Admin: 10/23/17 05:21 Dose: 100 mls/hr Dextrose/Sodium Chloride (Dextrose 5%/0.45% Ns 1000 Ml) 1,000 mls @ 125 mls/hr IV .Q8H [facility] Stop: 10/23/17 09:34 Last Admin: 10/23/17 05:21 Dose: 125 mls/hr Potassium Chloride (Potassium Chloride 20 Meq/100 Ml) 100 mls @ 50 mls/hr IVPB Q2 [facility] Stop: 10/23/17 11:59 Last Admin: 10/23/17 08:00 Dose: 50 mls/hr Ondansetron HCl (Zofran Inj) 4 mg IVP Q6 PRN PRN Reason: Nausea/Vomiting Pantoprazole Sodium (Protonix Inj) 40 mg IVP DAILY [facility] Last Admin: 10/23/17 08:00 Dose: 40 mg - Labs Labs: 10/23/17 05:50 10/23/17 05:50 PT 16.3 Seconds (9.8-13.1) H 10/23/17 05:50 INR 1.5 (0.9-1.2) H 10/23/17 05:50 APTT 30.4 Seconds (25.6-37.1) 10/23/17 05:50 - Constitutional Appears: No Acute Distress - Head Exam Head Exam: ATRAUMATIC, NORMAL INSPECTION, NORMOCEPHALIC - Eye Exam Eye Exam: EOMI, Normal appearance, PERRL Pupil Exam: NORMAL ACCOMODATION, PERRL - ENT Exam ENT Exam: Mucous Membranes Moist, Normal Exam - Neck Exam Neck Exam: Full ROM, Normal Inspection. absent: Lymphadenopathy - Respiratory Exam Respiratory Exam: Clear to Ausculation Bilateral, NORMAL BREATHING PATTERN - Cardiovascular Exam Cardiovascular Exam: REGULAR RHYTHM, +S1, +S2. absent: Murmur - GI/Abdominal Exam GI & Abdominal Exam: Soft, Tenderness, Normal Bowel Sounds Additional comments: RLQ - Rectal Exam Rectal Exam: NORMAL INSPECTION - Extremities Exam Extremities Exam: Full ROM, Normal Capillary Refill, Normal Inspection. absent : Joint Swelling, Pedal Edema - Back Exam Back Exam: NORMAL INSPECTION - Neurological Exam Neurological Exam: Alert, Awake, CN II-XII Intact, Normal Gait, Oriented x3 - Psychiatric Exam Psychiatric exam: Normal Affect, Normal Mood - Skin Skin Exam: Dry, Intact, Normal Color, Warm Assessment and Plan - Assessment and Plan (Free Text) Assessment: ACUTE APPENDICITIS--CONFIRMED BY CT SCAN OF ABD/PELVIS FEVER DUE TO APPENDICITIS MILD HYPOKALEMIA Plan: PT REASSURED IV K+ GIVEN TODAY SURGERY IS SCHEDULED FOR TODAY MEDICALLY CLEARED FOR SURGERY
--- NOTE | 2017-10-23 09:39 | CT ---
PROCEDURE: CT Abdomen and Pelvis with contrast HISTORY: abdominal pain COMPARISON: Complete abdomen ultrasound 10/21/2017. TECHNIQUE: Contrast dose: Omnipaque 300, 90 cc Radiation dose: Total exam DLP = 419.96 mGy-cm. This CT exam was performed using one or more of the following dose reduction techniques: Automated exposure control, adjustment of the mA and/or kV according to patient size, and/or use of iterative reconstruction technique. FINDINGS: LOWER THORAX: Trace linear atelectasis or fibrosis at left lower lobe base. LIVER: Diminished hepatic attenuation is appreciate diffusely compatible with hepatic steatosis. No no mass or intrahepatic biliary dilatation appreciable. GALLBLADDER AND BILE DUCTS: Unremarkable. PANCREAS: Unremarkable. No gross lesion or ductal dilatation. SPLEEN: Unremarkable. ADRENALS: Unremarkable. No mass. KIDNEYS AND URETERS: Unremarkable. No hydronephrosis. No solid mass. VASCULATURE: Unremarkable. No aortic aneurysm. BOWEL: Unremarkable. No obstruction. No gross mural thickening. APPENDIX: The appendix is dilated at its proximal greater than distal segment and does not fill with oral contrast material though the cecum is completely opacified. The appendix measures 12 mm greatest transverse dimension and exhibits mild mural thickening and definite periappendiceal reaction. The cecal base also appears inflamed. The pattern is compatible with appendicitis without CT sign of rupture. No abscess or free intraperitoneal gas collection appreciable. PERITONEUM: Unremarkable. No free fluid. No free air. LYMPH NODES: Unremarkable. No enlarged lymph nodes. BLADDER: Unremarkable. REPRODUCTIVE: Unremarkable. BONES: No acute fracture. OTHER FINDINGS: None. IMPRESSION: Findings compatible with appendicitis. No CT sign of rupture at this time. Concordant preliminary report from [facility], 02/21/2018 9:23 p.m..
--- NOTE | 2017-10-23 11:07 | CARD ---
APPROVED REPORT EKG Measurement Heart [id number] FL [id number] [id number] <Conclusion> Normal sinus rhythm Possible Left atrial enlargement Borderline ECG
[2017-10-23] MEDS ORDERED: Potassium Chloride 20 mEq 100 ML IVPB SCH (14:00)
[2017-10-23] MEDS ORDERED: Succinylcholine 200 mg/10 ml Inj IV ONE (14:14)
[2017-10-23] MEDS ORDERED: Propofol 10 mg/ml Inj (20 ML) ONE (14:14)
[2017-10-23] MEDS ORDERED: Lidocaine 4% (Laryng-O-Jet) Kit MM ONE (14:14)
[2017-10-23] MEDS ORDERED: Rocuronium 10 mg/ml (5 ml) ONE (14:14)
[2017-10-23] MEDS ORDERED: Lidocaine 2% PF (10 ml) Amp ONE (14:42)
[2017-10-23] MEDS ORDERED: Lactated Ringer's 1,000 ML IV ONE ×2 (14:48→15:30)
[2017-10-23] MEDS ORDERED: Midazolam 2 MG/2 ML VIAL ONE (14:54)
[2017-10-23] MEDS: Bupivacaine HCl 0.5% PF (10 ml) Inj ONE ×2 (15:22→15:53)
[2017-10-23] MEDS ORDERED: Neostigmine 1:1000 (1 mg/ml) Inj ONE (15:33)
[2017-10-23] MEDS ORDERED: HYDROmorphone 0.5 mg/0.5 ml ISec IVP PRN (16:04)
[2017-10-23] MEDS ORDERED: Oxycodone/Acetaminophen 5/325 mg Tab PO PRN ×2 (16:06)
--- NOTE | 2017-10-23 16:07 | PCM.SURG1 ---
Surgeon's Initial Post Op Note - Surgeon's Notes Surgeon: Dr. Coleman Electronic Warfare Linguist: Dr. Jacob PGY1, Dr. Lin PGY2 Type of Anesthesia: General Endo Pre-Operative Diagnosis: acute appendicitis Operative Findings: acute appendicitis Post-Operative Diagnosis: acute appendicitis Operation Performed: laparoscopic appendectomy Specimen/Specimens Removed: appendix Estimated Blood Loss: EBL {In ML}: 20 Blood Products Given: N/A Drains Used: No Drains Post-Op Condition: Good Date of Surgery/Procedure: 10/23/17 Time of Surgery/Procedure: 14:30
[2017-10-23] MEDS: Lactated Ringer's 1,000 ML IV SCH ×2 (17:23→23:23)
[2017-10-23] MEDS ORDERED: Benzocaine/Menthol (Cepacol) Lozenge PO PRN (20:18)
--- NOTE | 2017-10-24 03:07 | OP ---
PROCEDURE DATE: 10/23/2017 PREOPERATIVE DIAGNOSIS: Acute appendicitis. POSTOPERATIVE DIAGNOSIS: Acute appendicitis. PROCEDURE PERFORMED: Laparoscopic appendectomy. SURGEON: Jd Coleman MD. SOLDERING MACHINE FEEDER: Song Jacob DO SECOND SOLDERING MACHINE FEEDER: Marcin Lin DO THIRD SOLDERING MACHINE FEEDER: TOMAS Marroquin. KILN BURNER: Ayden Marrero MD TYPE OF ANESTHESIA: General endotracheal intubation. IV FLUIDS: Crystalloids. ESTIMATED BLOOD LOSS: 10 mL. INTRAOPERATIVE FINDINGS: Acute appendicitis. SPECIMEN: Appendix. BRIEF HISTORY: Mr. Lu is a very pleasant 42-year-old gentleman who came to the hospital complaining of initially epigastric and right upper quadrant abdominal pain that subsequently localized to the right lower quadrant. The patient underwent CAT scan of the abdomen and pelvis showing acute appendicitis. All the risks and benefits of the procedure were explained to the patient with the patient having a full understanding of all the risks and benefits involved. Informed consent was obtained, and the patient was taken to the operating room for above stated procedure. DESCRIPTION OF PROCEDURE: The patient was brought into the operating room and placed supine on the operating table. Bilateral Flowtron boots were applied to the patient's lower extremities. After successful induction of anesthesia and successful endotracheal intubation by the anesthesia team, the patient's abdomen was prepped with Chloraprep stick and draped in a standard surgical fashion. Prior to the beginning of procedure, timeout was called in the room and everyone in the room were in agreement. Using the Veress needle, the patient's abdomen was entered at the umbilicus and pneumoperitoneum was achieved with good opening pressures. Once this was accomplished using the 11-blade scalpel knife, approximately 5 mm incision was made in the umbilicus in the longitudinal fashion. Subsequent to that, 5 mm trocar was introduced into the patient's abdomen. Subsequent to that, 5 mm zero degree scope was introduced into the patient's abdomen and abdomen was inspected. We immediately were able to visualize some inflammatory changes in the right lower quadrant of the patient's abdomen. Then attention was turned to the lower mid abdomen. Using a 11-blade scalpel knife, approximately 5 mm insertion was made in transverse fashion. Subsequent to that, 5 mm trocar was introduced into the patient's abdomen and then attention was turned to the left lower quadrant of the patient's abdomen. Using a 11-blade scalpel knife, approximately 1 cm incision was made in a transverse fashion in the left lower quadrant of the patient's abdomen. Subsequent to that, 12 mm trocar was introduced into the patient's abdomen. At this point in time, using two Octavio and Getimothy graspers, appendix was mobilized, and subsequent to that, using [place] dissector, the window was created between appendix and the mesoappendix. Once this was accomplished, appendix was taken right at the base with 45 mm blue load and Endo KATY stapler, and subsequent to that, mesoappendix was taken with 45 mm villareal load and Endo KATY stapler. Once this was accomplished and appendix was completely freed up, EndoCatch bag was introduced into the patient's abdomen. Appendix was placed inside of the bag and the bag was closed. At this point in time, staple line was inspected for hemostasis. Hemostasis was confirmed, and subsequent to that, 12 mm trocar together with EndoCatch bag and appendix were removed from the patient's abdomen and passed off to the [facility] as a specimen. Fascial layer at the 12 mm trocar was closed with 2 interrupted 0 Vicryl sutures and an UR-5 needle. Subsequent to that, the patient's abdomen was fully desufflated. The rest of the trocars were removed from the patient's abdomen, and the skin was closed with 4-0 Monocryl suture in a running subcuticular fashion. At the end of the procedure, incision sites were infiltrated with Marcaine anesthetic. The patient's abdomen was washed and dried, and Dermabond was applied to the site of the incisions. Nance catheter was removed from the patient's urinary bladder. The patient was successfully extubated by the anesthesia team, transferred through a stretcher and taken to the recovery room in a stable condition. At the end of the procedure, all instrument counts, needles and sponges were correct. Jd Coleman MD
[2017-10-24 06:07] LABS: BASO % 0.2 % (0.0-2.0); HEMOGLOBIN 13.2 g/dL (12.0-18.0); LYMPH # 0.7 K/uL (1.0-4.3); LYMPH % 8.2 % (20.0-40.0); MEAN CELL VOLUME 87.3 fl (80.0-94.0); MEAN CORPUSCULAR HEMOGLOBIN 31.1 pg (27.0-31.0); MEAN CORPUSCULAR HGB CONC 35.7 g/dL (33.0-37.0); MEAN PLATELET VOLUME 7.3 fl (7.2-11.7); MONO # 0.5 K/uL (0.0-0.8); NEUT # 7.6 K/uL (1.8-7.0); NEUT % 85.6 % (50.0-75.0); NRBC % 0.1 % (0.0-0.0); RBC 4.23 Mil/uL (4.40-5.90); RED CELL DISTRIBUTION WIDTH 12.9 % (11.5-14.5); WHITE BLOOD COUNT 8.8 K/uL (4.8-10.8)
[2017-10-24 06:26] LABS: ALB/GLOB RATIO 1.2 (1.0-2.1); ALBUMIN 3.7 g/dL (3.5-5.0); ALT/SGPT 33 U/L (21-72); AST/SGOT 21 U/L (17-59); BLOOD UREA NITROGEN 4 mg/dl (9-20); CALCIUM 9.1 mg/dL (8.4-10.2); GFR AFRICAN-AMERICAN > 60; GFR NON-AFRICAN AMERICAN > 60
[2017-10-24] MEDS ORDERED: Lactated Ringer's 1,000 ML IV SCH (06:30)
[2017-10-24] MEDS: Lactated Ringer's 1,000 ML IV SCH (06:46)
[2017-10-24] MEDS: Piperacillin/Tazobact 3.375 GM in Sodium Chloride 0.9% 100 ML IVPB SCH (06:51)
--- NOTE | 2017-10-24 08:00 | CP.PCM.PN ---
Subjective - Date & Time of Evaluation Date of Evaluation: 10/24/17 Time of Evaluation: 06:50 - Subjective Subjective: Surgery Progress note. Dr. Coleman Pt seen and examined at bedside. No acute events overnight. Tolerating clear liquid diet. No N/V/D. No F/C. Does c/o mild mac-incisional pain. No new complaints. Objective - Vital Signs/Intake and Output Vital Signs (last 24 hours): Temp Pulse Resp BP Pulse Ox 97.4 F L 60 15 101/64 97 10/24/17 03:47 10/24/17 03:47 10/24/17 03:47 10/24/17 03:47 10/24/17 03:47 - Medications Medications: Current Medications Acetaminophen (Tylenol 325mg Tab) 650 mg PO Q4 PRN PRN Reason: Fever >100.4 F Last Admin: 10/22/17 09:31 Dose: 650 mg Benzocaine/Menthol (Cepacol Sore Throat) 1 marlo PO Q2 PRN PRN Reason: Sore Throat Last Admin: 10/23/17 20:26 Dose: 1 marlo Docusate Sodium (Colace) 100 mg PO BID [facility] Last Admin: 10/23/17 17:23 Dose: Not Given Piperacillin Sod/Tazobactam (Sod 3.375 gm/ Sodium Chloride) 100 mls @ 100 mls/ hr IVPB 0000,0600,1200,1800 SOFI PRN Reason: Protocol Last Admin: 10/24/17 06:51 Dose: 100 mls/hr Lactated Ringer's (Lactated Ringer's) 1,000 mls @ 50 mls/hr IV .Q20H [facility] Last Admin: 10/24/17 06:46 Dose: Not Given Ondansetron HCl (Zofran Inj) 4 mg IVP Q6 PRN PRN Reason: Nausea/Vomiting Oxycodone/Acetaminophen (Percocet 5/325 Mg Tab) 1 tab PO Q4 PRN PRN Reason: Pain, Mild (1-3) Stop: 10/26/17 16:07 Last Admin: 10/23/17 23:22 Dose: 1 tab Oxycodone/Acetaminophen (Percocet 5/325 Mg Tab) 2 tab PO Q6 PRN PRN Reason: Pain, moderate (4-7) Stop: 10/26/17 16:07 Pantoprazole Sodium (Protonix Inj) 40 mg IVP DAILY [facility] Last Admin: 10/23/17 08:00 Dose: 40 mg - Labs Labs: 10/24/17 05:25 10/24/17 05:25 PT 16.3 Seconds (9.8-13.1) H 10/23/17 05:50 INR 1.5 (0.9-1.2) H 10/23/17 05:50 APTT 30.4 Seconds (25.6-37.1) 10/23/17 05:50 - Constitutional Appears: Well, Non-toxic, No Acute Distress - Head Exam Head Exam: ATRAUMATIC, NORMAL INSPECTION, NORMOCEPHALIC - Eye Exam Eye Exam: EOMI, Normal appearance - ENT Exam ENT Exam: Mucous Membranes Moist - Respiratory Exam Respiratory Exam: NORMAL BREATHING PATTERN. absent: Accessory Muscle Use, Respiratory Distress - Cardiovascular Exam Cardiovascular Exam: RRR. absent: JVD - GI/Abdominal Exam GI & Abdominal Exam: Soft. absent: Distended, Firm, Guarding, Rigid, Rebound Additional comments: Mild periincisional pain. Dermabond in place over laparoscopic incision, clean, dry and intact. Skin edges well approximated. - Extremities Exam Extremities Exam: Normal Inspection. absent: Calf Tenderness - Neurological Exam Neurological Exam: Alert, Awake, Oriented x3 - Skin Skin Exam: Dry, Intact, Normal Color, Warm Assessment and Plan - Assessment and Plan (Free Text) Assessment: 42yo M s/p Lap Appendectomy. POD 1 Plan: - Cleared for discharge from surgical standpoint. - Recommend d/c on course of PO Augmentin - Pain management as needed - Follow up with Dr. Coleman in 7-10 days. Call for appointment - No diet restrictions - You may shower. Do not soak, no pools, no bath tubs for at least 2 weeks - No heavy lifting for 4 weeks - Do not pick at dermabond, allow for it to come off on its own Further recs as per Dr. Jared Jacob PGY1 surgery pager: [phone]
[2017-10-24 08:02] VITALS: BP 119/81; PULSE 108; RESP 20; TEMP 98; O2SAT 100
[2017-10-24] MEDS ORDERED: Amoxicillin-Clav 875-125 mg Tab PO SCH (09:00)
--- NOTE | 2017-10-24 09:05 | CP.PCM.DIS ---
Provider - Provider Date of Admission: 10/22/17 09:19 Attending physician: Kenny Mcdowell MD Time Spent in preparation of Discharge (in minutes): 30 Diagnosis - Discharge Diagnosis (1) Acute appendicitis Status: Acute (2) S/P appendectomy Status: Acute (3) Abdominal pain Status: Acute Hospital Course - Lab Results Lab Results: Micro Results 10/22/17 12:20 Blood-Venous Blood Culture - Preliminary NO GROWTH AFTER 24 HOURS 10/22/17 12:20 Blood-Venous Blood Culture - Preliminary NO GROWTH AFTER 24 HOURS Most Recent Lab Values WBC 8.8 K/uL (4.8-10.8) 10/24/17 05:25 RBC 4.23 Mil/uL (4.40-5.90) L 10/24/17 05:25 Hgb 13.2 g/dL (12.0-18.0) 10/24/17 05:25 Hct 36.9 % (35.0-51.0) 10/24/17 05:25 MCV 87.3 fl (80.0-94.0) 10/24/17 05:25 MCH 31.1 pg (27.0-31.0) H 10/24/17 05:25 MCHC 35.7 g/dL (33.0-37.0) 10/24/17 05:25 RDW 12.9 % (11.5-14.5) 10/24/17 05:25 Plt Count 150 K/uL (130-400) 10/24/17 05:25 MPV 7.3 fl (7.2-11.7) 10/24/17 05:25 Neut % (Auto) 85.6 % (50.0-75.0) H 10/24/17 05:25 Lymph % (Auto) 8.2 % (20.0-40.0) L 10/24/17 05:25 [place] % (Auto) 6.0 % (0.0-10.0) 10/24/17 05:25 Eos % (Auto) 0.0 % (0.0-4.0) 10/24/17 05:25 Baso % (Auto) 0.2 % (0.0-2.0) 10/24/17 05:25 Neut # (Auto) 7.6 K/uL (1.8-7.0) H 10/24/17 05:25 Lymph # (Auto) 0.7 K/uL (1.0-4.3) L 10/24/17 05:25 [place] # (Auto) 0.5 K/uL (0.0-0.8) 10/24/17 05:25 Eos # (Auto) 0.0 K/uL (0.0-0.7) 10/24/17 05:25 Baso # (Auto) 0.0 K/uL (0.0-0.2) 10/24/17 05:25 Neutrophils % (Manual) 91 % (42-75) H 10/21/17 20:45 Band Neutrophils % 1 % (0-2) 10/21/17 20:45 Lymphocytes % (Manual) 6 % (20-50) L 10/21/17 20:45 Monocytes % (Manual) 2 % (0-10) 10/21/17 20:45 Platelet Estimate Normal (NORMAL) 10/21/17 20:45 PT 16.3 Seconds (9.8-13.1) H 10/23/17 05:50 INR 1.5 (0.9-1.2) H 10/23/17 05:50 APTT 30.4 Seconds (25.6-37.1) 10/23/17 05:50 Sodium 140 mmol/l (132-148) 10/24/17 05:25 Potassium 4.2 MMOL/L (3.6-5.0) 10/24/17 05:25 Chloride 106 mmol/L (98-107) 10/24/17 05:25 Carbon Dioxide 24 mmol/L (22-30) 10/24/17 05:25 Anion Gap 14 (10-20) 10/24/17 05:25 BUN 4 mg/dl (9-20) L 10/24/17 05:25 Creatinine 0.8 mg/dl (0.8-1.5) 10/24/17 05:25 Est GFR ( Amer) > 60 10/24/17 05:25 Est GFR (Non-Af Amer) > 60 10/24/17 05:25 Random Glucose 101 mg/dL (75-110) 10/24/17 05:25 Calcium 9.1 mg/dL (8.4-10.2) 10/24/17 05:25 Total Bilirubin 1.3 mg/dl (0.2-1.3) 10/24/17 05:25 AST 21 U/L (17-59) 10/24/17 05:25 ALT 33 U/L (21-72) 10/24/17 05:25 Alkaline Phosphatase 36 U/L (38-126) L 10/24/17 05:25 Total Protein 6.7 G/DL (6.3-8.2) 10/24/17 05:25 Albumin 3.7 g/dL (3.5-5.0) 10/24/17 05:25 Globulin 3.0 gm/dL (2.2-3.9) 10/24/17 05:25 Albumin/Globulin Ratio 1.2 (1.0-2.1) 10/24/17 05:25 Lipase 65 U/L (23-300) 10/21/17 20:45 Urine Color Yellow (YELLOW) 10/21/17 20:45 Urine Clarity Clear (Clear) 10/21/17 20:45 Urine pH 6.0 (5.0-8.0) 10/21/17 20:45 Ur Specific [place] 1.015 (1.003-1.030) 10/21/17 20:45 Urine Protein Negative mg/dL (NEGATIVE) 10/21/17 20:45 Urine Glucose (UA) Neg mg/dL (Normal) 10/21/17 20:45 Urine Ketones Trace mg/dL (NEGATIVE) 10/21/17 20:45 Urine Blood Small (NEGATIVE) 10/21/17 20:45 Urine Nitrate Negative (NEGATIVE) 10/21/17 20:45 Urine Bilirubin Negative (NEGATIVE) 10/21/17 20:45 Urine Urobilinogen 0.2-1.0 mg/dL (0.2-1.0) 10/21/17 20:45 Ur Leukocyte Esterase Neg Adama/uL (Negative) 10/21/17 20:45 Urine RBC (Auto) 8 /hpf (0-3) H 10/21/17 20:45 Urine Microscopic WBC < 1 /hpf (0-5) 10/21/17 20:45 Ur Squamous Epith Cells < 1 /hpf (0-5) 10/21/17 20:45 - Hospital Course Hospital Course: CLINICALLY IMPROVED POST APPENDECTOMY Discharge Exam - Head Exam Head Exam: ATRAUMATIC, NORMAL INSPECTION, NORMOCEPHALIC - Eye Exam Eye Exam: EOMI, Normal appearance, PERRL Pupil Exam: NORMAL ACCOMODATION, PERRL - GI/Abdominal Exam GI & Abdominal Exam: Normal Bowel Sounds Additional comments: SURGICAL SITE CLEAN AND DRY - Rectal Exam Rectal Exam: NORMAL INSPECTION - Exam Exam: Circumcision, NORMAL INSPECTION External exam: NORMAL EXTERNAL EXAM Speculum exam: NORMAL SPECULUM EXAM Bimanual exam: NORMAL BIMANUAL EXAM - Neurological Exam Neurological exam: Alert, CN II-XII Intact, Normal Gait, Oriented x3, Reflexes Normal - Psychiatric Exam Psychiatric exam: Normal Affect, Normal Mood - Skin Skin Exam: Dry, Intact, Normal Color, Warm Discharge Plan - Follow Up Plan Condition: STABLE Disposition: HOME/ ROUTINE Patient education suggested?: Yes Instructions: Appendectomy, Laparoscopic Surgery (DC) Additional Instructions: follow up with primary MD and dr griffiths 1 week - Cleared for discharge from Surgery standpoint - Follow up with Dr. Griffiths in 7-10 days - Take Antibiotics as prescribed to completion - No diet restrictions - You may shower. Do not soak, no pools, no bath tubs - No heavy lifting for 4 weeks - Do not pick at dermabond, allow for it to come off on its own. Referrals: Jd Griffiths MD [Staff Provider] - Ted Awad MD [Staff Provider] -
== END 2017-10-24 13:53 | disposition home or self-care (01) | DRG 343 ==
LOC: H.ER 19:51 → H.ERHOLD 10-22 00:26 → H.MEDSURG1 10-22 01:58 → OBSVTOIN 10-22 09:19
PROVIDERS: ADMIT Internal Medicine Pulmonary Disease; ATTEND Internal Medicine Pulmonary Disease
PROC: 0DTJ4ZZ Resection of Appendix, Percutaneous Endoscopic Approach (ICD-10-PCS; principal; 2017-10-23 14:00)
DX: K35.80 Unspecified acute appendicitis (principal); E87.6 Hypokalemia; Z72.0 Tobacco use; K76.0 Fatty (change of) liver, not elsewhere classified